=== PATIENT | female | born 1955 | race Caucasian/White ===

== ENCOUNTER 2019-07-22 09:08 | Emergency (ER) | payer OTHER ==
[~2019-07-22] VITALS: Ht 149.8 cm; Wt 49.0 kg
[~2019-07-22 09:08] MED LIST: ASPIRIN CHILDRE81 MG PO; ATOXIMETIN-B1 CAP PO; BLEPH-10 5 ML5 ML OP; CIPRO250 MG PO; CIPROFLOXACIN500 MG PO; HYDROCODONE BIT1 T11 PO; IMITREX25 MG PO; INDOCIN50 MG PO; MELOXICAM7.5 MG PO; OMEPRAZOLE20 MG PO; PRISTIQ50 MG PO; PYRIDIUM200 MG PO; RESTORIL15 MG PO; TORADOL10 MG PO; VIBRAMYCIN100 MG PO; VICODIN 5/500 505 MG PO; VICODIN 500 MG-1 TAB PO; ZOFRAN ODT4 MG SL
[2019-07-22] MEDS ORDERED: NORCO 5-325 TA1 EACH PO (10:14)
== END 2019-07-22 10:18 | disposition home or self-care (01) ==
LOC: ED 09:08
DX: S82.62XA Displaced fracture of lateral malleolus of left fibula, initial encounter for closed fracture (principal); Z88.8 Allergy status to other drugs, medicaments and biological substances; Z79.899 Other long term (current) drug therapy; Z79.82 Long term (current) use of aspirin; X50.1XXA Overexertion from prolonged static or awkward postures, initial encounter; Y93.89 Activity, other specified; Y92.091 Bathroom in other non-institutional residence as the place of occurrence of the external cause; Y99.8 Other external cause status

== ENCOUNTER → 2019-12-04 | Outpatient (CLI) | payer OTHER ==
[~2019-12-04] MED LIST changes: +GABAPENTIN600 MG PO; +HYDROXYZINE HCL25 MG PO; +NORCO 5-325 TA1 EACH PO; +PANTOPRAZOLE SO40 MG PO; +TRAZODONE100 MG PO; +ZOLOFT100 MG PO
[2019-12-04 08:42] VITALS: BP 118/55
== END | disposition home or self-care (01) ==
LOC: INJECTION 08:19
DX: M81.0 Age-related osteoporosis without current pathological fracture (principal); G43.909 Migraine, unspecified, not intractable, without status migrainosus; Z90.710 Acquired absence of both cervix and uterus; Z90.49 Acquired absence of other specified parts of digestive tract

== ENCOUNTER → 2020-06-13 | Outpatient (CLI) | payer OTHER ==
[2020-06-13 09:17] VITALS: BP 111/69
== END | disposition home or self-care (01) ==
LOC: INJECTION 08:50
DX: M81.0 Age-related osteoporosis without current pathological fracture (principal); G43.909 Migraine, unspecified, not intractable, without status migrainosus; Z90.710 Acquired absence of both cervix and uterus; Z90.49 Acquired absence of other specified parts of digestive tract

== ENCOUNTER → 2021-01-21 | Outpatient (CLI) | payer OTHER | END | disposition home or self-care (01) | LOC: INJECTION 10:00 | PROVIDERS: ATTEND Family Medicine | DX: M81.0 Age-related osteoporosis without current pathological fracture (principal); G43.909 Migraine, unspecified, not intractable, without status migrainosus; Z90.49 Acquired absence of other specified parts of digestive tract ==

== ENCOUNTER 2021-05-02 10:23 | Emergency (ER) | payer OTHER ==
[~2021-05-02] VITALS: Ht 152.4 cm; Wt 63.5 kg
[2021-05-02 11:02] LABS: BASO % 0.2 % (0.0-1.0); EOS # 0.1 10*3/uL (0.0-0.4); EOS % 2.2 % (1.0-4.0); HEMATOCRIT 38.5 % (37.0-47.0); LYMPH # 1.2 10*3/uL (1.3-4.4); LYMPH % 25.4 % (27.0-41.0); MEAN CELL VOLUME 97.5 fl (81.0-99.0); MEAN CORPUSCULAR HGB 31.4 pg (27.0-31.0); MEAN CORPUSCULAR HGB CONC 32.2 g/dl (33.0-37.0); MEAN PLATELET VOLUME 10.7 fl (9.6-12.3); MONO # 0.5 10*3/uL (0.1-1.0); MONO % 10.5 % (3.0-9.0); NEUT # 2.8 10*3/uL (2.3-7.9); NEUT % 61.5 % (47.0-73.0); PLATELET COUNT AUTOMATED 167 10*3/uL (130-400); RED BLOOD COUNT 3.95 10*6/uL (4.10-5.10); RED CELL DISTRI WIDTH 12.7 % (0-14.5); WHITE BLOOD COUNT 4.6 10*3/uL (4.8-10.8)
[2021-05-02 11:03] LABS: BILIRUBIN Negative (Negative); BLOOD Negative (Negative); CLARITY Clear (Clear); COLOR Yellow (Yellow); GLUCOSE Negative (Negative); KETONE Trace (Negative); LEUKO ESTERASE Trace (Negative); NITRITE Negative (Negative); PH 5.5 (4.5-8.0); UROBILINOGEN 0.2 E.U./dl (0.0-1.0)
[2021-05-02 11:17] LABS: ALBUMIN 3.2 gm/dl (3.1-4.5); ALKALINE PHOSPHATASE 47 U/L (45-117); BUN 21 mg/dl (7-24); CHLORIDE 110 mmol/L (98-107); CREATININE 0.71 mg/dL (0.55-1.02); LIPASE 85 U/L (73-393); POTASSIUM 3.8 mmol/L (3.5-5.1); SGOT/AST 11 IU/L (3-35); SGPT/ALT 18 U/L (12-78); SODIUM 143 mmol/L (136-145); TOTAL PROTEIN 6.5 gm/dL (6.4-8.2)
[2021-05-02 11:28] LABS: BACTERIA 1+; CALCIUM OXALATE CRYSTALS 1+; MUCOUS 1+
[2021-05-02] MEDS ORDERED: FLOMAX0.4 MG PO (12:43)
[2021-05-02] MEDS ORDERED: ZOFRAN4 MG PO (12:43)
[2021-05-02] MEDS ORDERED: HYDROCODONE-AC1 EAC1 PO (12:43)
== END 2021-05-02 12:54 | disposition home or self-care (01) ==
LOC: ED 10:23
PROVIDERS: Family Medicine
DX: N13.2 Hydronephrosis with renal and ureteral calculous obstruction (principal); R19.7 Diarrhea, unspecified; Z87.442 Personal history of urinary calculi; Z88.1 Allergy status to other antibiotic agents; Z79.899 Other long term (current) drug therapy; Z79.82 Long term (current) use of aspirin; Z90.49 Acquired absence of other specified parts of digestive tract; Z90.711 Acquired absence of uterus with remaining cervical stump

== ENCOUNTER → 2021-08-11 | Outpatient (CLI) | payer OTHER ==
[~2021-08-11] MED LIST changes: +FLOMAX0.4 MG PO; +HYDROCODONE-AC1 EAC1 PO; +ZOFRAN4 MG PO
[2021-08-11 08:41] VITALS: BP 123/75
== END | disposition home or self-care (01) ==
LOC: INJECTION 08:00
PROVIDERS: ATTEND Family Medicine
DX: M81.0 Age-related osteoporosis without current pathological fracture (principal); G43.909 Migraine, unspecified, not intractable, without status migrainosus

== ENCOUNTER 2022-01-18 12:19 | Emergency (ER) | payer OTHER ==
[~2022-01-18] VITALS: Ht 149.8 cm; Wt 61.2 kg
[2022-01-18] MEDS ORDERED: VOLTAREN ARTHRI20 GM T (12:45)
== END 2022-01-18 12:50 | disposition home or self-care (01) ==
LOC: ED 12:19
DX: M76.32 Iliotibial band syndrome, left leg (principal); Z88.1 Allergy status to other antibiotic agents; Z79.899 Other long term (current) drug therapy; Z79.82 Long term (current) use of aspirin; Z87.442 Personal history of urinary calculi; Z90.710 Acquired absence of both cervix and uterus; Z90.49 Acquired absence of other specified parts of digestive tract

== ENCOUNTER → 2022-02-09 | Outpatient (CLI) | payer OTHER ==
[~2022-02-09] MED LIST changes: +VOLTAREN ARTHRI20 GM T
[2022-02-09 08:02] VITALS: BP 147/57
== END | disposition home or self-care (01) ==
LOC: INJECTION 07:51
PROVIDERS: ATTEND Family Medicine
DX: M81.0 Age-related osteoporosis without current pathological fracture (principal)

== ENCOUNTER 2022-05-22 14:03 | Emergency (ER) | payer OTHER | END 2022-05-22 17:32 | disposition home or self-care (01) | LOC: ED 14:03 | DX: S52.501A Unspecified fracture of the lower end of right radius, initial encounter for closed fracture (principal); Z79.899 Other long term (current) drug therapy; Z79.82 Long term (current) use of aspirin; Z90.49 Acquired absence of other specified parts of digestive tract; Z90.710 Acquired absence of both cervix and uterus; W18.39XA Other fall on same level, initial encounter; Y93.89 Activity, other specified; Y92.89 Other specified places as the place of occurrence of the external cause; Y99.8 Other external cause status ==

== ENCOUNTER → 2022-06-02 | Day surgery (SDC) | payer OTHER ==
[2022-05-29 14:12] VITALS: BP 121/68
[2022-05-29 14:58] LABS: BASO % 0.4 % (0.0-1.0); EOS # 0.1 10*3/uL (0.0-0.4); EOS % 1.3 % (1.0-4.0); HEMATOCRIT 39.1 % (37.0-47.0); LYMPH # 0.9 10*3/uL (1.3-4.4); LYMPH % 16.2 % (27.0-41.0); MEAN CELL VOLUME 96.5 fl (81.0-99.0); MEAN CORPUSCULAR HGB 31.4 pg (27.0-31.0); MEAN CORPUSCULAR HGB CONC 32.5 g/dl (33.0-37.0); MEAN PLATELET VOLUME 10.3 fl (9.6-12.3); MONO # 0.5 10*3/uL (0.1-1.0); MONO % 8.3 % (3.0-9.0); NEUT # 4.1 10*3/uL (2.3-7.9); NEUT % 73.6 % (47.0-73.0); PLATELET COUNT AUTOMATED 194 10*3/uL (130-400); RED BLOOD COUNT 4.05 10*6/uL (4.10-5.10); WHITE BLOOD COUNT 5.5 10*3/uL (4.8-10.8)
[~2022-06-02] VITALS: Ht 149.8 cm; Wt 61.2 kg
[~2022-06-02] MED LIST changes: +CALCIUM 600 MG1 EA10 PO; +IMITREX100 MG PO; -IMITREX25 MG PO; +OMEPRAZOLE40 MG PO
[2022-06-02 08:00] VITALS: BP 137/65
[2022-06-02 10:15] VITALS: BP 139/78
[2022-06-02 10:30] VITALS: BP 136/77
[2022-06-02 10:45] VITALS: BP 141/96
== END | disposition home or self-care (01) ==
LOC: SDC 05-29 14:00
PROVIDERS: ATTEND Orthopaedic Surgery
DX: S52.571A Other intraarticular fracture of lower end of right radius, initial encounter for closed fracture (principal); G43.909 Migraine, unspecified, not intractable, without status migrainosus; F41.9 Anxiety disorder, unspecified; F32.9 Major depressive disorder, single episode, unspecified; Z90.710 Acquired absence of both cervix and uterus; Z90.49 Acquired absence of other specified parts of digestive tract; Z98.42 Cataract extraction status, left eye; Z98.41 Cataract extraction status, right eye; W19.XXXA Unspecified fall, initial encounter; Y93.89 Activity, other specified; Y92.89 Other specified places as the place of occurrence of the external cause; Y99.8 Other external cause status

== ENCOUNTER → 2022-06-12 | Outpatient (CLI) | payer OTHER | END | disposition home or self-care (01) | LOC: ORTHO 00:41 | PROVIDERS: ATTEND Orthopaedic Surgery | DX: S52.571D Other intraarticular fracture of lower end of right radius, subsequent encounter for closed fracture with routine healing (principal); M19.031 Primary osteoarthritis, right wrist; X58.XXXD Exposure to other specified factors, subsequent encounter ==

== ENCOUNTER → 2022-07-10 | Outpatient (CLI) | payer OTHER | END | disposition home or self-care (01) | LOC: ORTHO 00:42 | PROVIDERS: ATTEND Orthopaedic Surgery | DX: S52.571D Other intraarticular fracture of lower end of right radius, subsequent encounter for closed fracture with routine healing (principal); X58.XXXD Exposure to other specified factors, subsequent encounter ==

== ENCOUNTER → 2022-08-14 | Outpatient (CLI) | payer OTHER ==
[2022-08-14 10:27] VITALS: BP 139/77
== END | disposition home or self-care (01) ==
LOC: INJECTION 10:30
PROVIDERS: ATTEND Family Medicine
DX: M81.0 Age-related osteoporosis without current pathological fracture (principal); G43.909 Migraine, unspecified, not intractable, without status migrainosus; Z90.710 Acquired absence of both cervix and uterus; Z90.89 Acquired absence of other organs

== ENCOUNTER → 2022-09-11 | Outpatient (CLI) | payer OTHER | END | disposition home or self-care (01) | LOC: ORTHO 02:17 | PROVIDERS: ATTEND Orthopaedic Surgery | DX: S52.571D Other intraarticular fracture of lower end of right radius, subsequent encounter for closed fracture with routine healing (principal); X58.XXXD Exposure to other specified factors, subsequent encounter ==

== ENCOUNTER → 2023-02-11 | Outpatient (CLI) | payer OTHER ==
[2023-02-11 10:25] VITALS: BP 107/64
== END | disposition home or self-care (01) ==
LOC: INJECTION 10:15
PROVIDERS: ATTEND Family Medicine
DX: M81.0 Age-related osteoporosis without current pathological fracture (principal); G43.909 Migraine, unspecified, not intractable, without status migrainosus; Z90.710 Acquired absence of both cervix and uterus

== ENCOUNTER → 2023-09-09 | Outpatient (CLI) | payer MEDICARE ==
[2023-09-09 10:35] VITALS: BP 141/66
== END | disposition home or self-care (01) ==
LOC: INJECTION 10:00
PROVIDERS: ATTEND Family Medicine
DX: M81.0 Age-related osteoporosis without current pathological fracture (principal); G43.909 Migraine, unspecified, not intractable, without status migrainosus; Z90.710 Acquired absence of both cervix and uterus

== ENCOUNTER 2023-10-02 12:49 | Emergency (ER) | payer MEDICARE ==
[~2023-10-02] VITALS: Ht 152.4 cm; Wt 61.2 kg
[2023-10-02] MEDS ORDERED: TRAZODONE100 MG PO (13:14)
== END 2023-10-02 20:20 | disposition short-term general hospital (02) ==
LOC: ED 12:49
DX: S22.058A Other fracture of T5-T6 vertebra, initial encounter for closed fracture (principal); R05.9 Cough, unspecified; Z88.1 Allergy status to other antibiotic agents; Z79.82 Long term (current) use of aspirin; Z79.899 Other long term (current) drug therapy; Z87.442 Personal history of urinary calculi; Z90.49 Acquired absence of other specified parts of digestive tract; Z90.711 Acquired absence of uterus with remaining cervical stump; X50.9XXA Other and unspecified overexertion or strenuous movements or postures, initial encounter; Y93.89 Activity, other specified; Y92.89 Other specified places as the place of occurrence of the external cause; Y99.8 Other external cause status

== ENCOUNTER → 2023-11-18 | Outpatient (CLI) | payer MEDICARE ==
[~2023-11-18] MED LIST changes: +DECADRON4 MG PO; +GUAIFEN-CODEIN118 ML PO; +MUCUS RELIEF600 MG PO; +NEURONTIN100 MG PO; +OMNICEF300 MG PO; +ZITHROMAX500 MG PO
== END | disposition home or self-care (01) ==
LOC: RAD 09:27
PROVIDERS: ATTEND Student in an Organized Health Care Education/Training Program
DX: S22.000A Wedge compression fracture of unspecified thoracic vertebra, initial encounter for closed fracture (principal); X58.XXXA Exposure to other specified factors, initial encounter; Y93.89 Activity, other specified; Y92.89 Other specified places as the place of occurrence of the external cause; Y99.8 Other external cause status

== ENCOUNTER → 2024-04-06 | Outpatient (CLI) | payer MEDICARE ==
[~2024-04-06] MED LIST changes: +DENOSUMAB 60 MG/ML SYRINGE SC ONE
[2024-04-06 09:46] VITALS: BP 120/53
== END | disposition home or self-care (01) ==
LOC: INJECTION 09:30
PROVIDERS: ATTEND Family Medicine
DX: M81.0 Age-related osteoporosis without current pathological fracture (principal); G43.909 Migraine, unspecified, not intractable, without status migrainosus; Z90.710 Acquired absence of both cervix and uterus